=== PATIENT | female | born 1945 | race Caucasian/White ===

== ENCOUNTER 2018-12-12 05:30 | Day surgery (SDC) | payer OTHER ==
[2018-12-11 09:41] VITALS: BMI 32.4
[~2018-12-12] VITALS: Ht 154.9 cm; Wt 79.4 kg
[2018-12-12] VITALS (14 sets, daily range): BP systolic 90–118; BP diastolic 46–69; PULSE 58–78; RESP 12–20; Ht 154.9 cm; Wt 79.4 kg
[~2018-12-12 05:30] MED LIST: ALLO300T2 PO; ASPI81TA52 PO; ATOR40TA68 PO; DORZ10DR5 BOTH EYES; LATA2.5D2 BOTH EYES; LISI-471 PO; METF500T24 PO; SAXA5TAB2 PO
[2018-12-12] MEDS ORDERED: MOXIFLOXACIN 0.5% 3 ML OPH OPER SCH (06:00)
[2018-12-12] MEDS ORDERED: DICLOFENAC 0.1% 2.5 ML OPH OPER SCH (06:00)
[2018-12-12] MEDS ORDERED: ERYTHROMYCIN 1 GM OPH OINT LEFT EYE ONE (06:00)
[2018-12-12] MEDS ORDERED: PHENYLephrine 10% 5 ML OPH OPER SCH (06:00)
[2018-12-12] MEDS ORDERED: TROPICAMIDE 1% 15 ML OPH OPER SCH (06:00)
[2018-12-12] MEDS ORDERED: LIDOCAINE 1%/EPI (1:100,000) (MDV) 20 ML ONE (06:32)
[2018-12-12] MEDS ORDERED: TOBRAMYCIN 0.3% 3.5 GM OPH OINT ONE (06:32)
[2018-12-12] MEDS ORDERED: CARBACHOL 0.01% 1.5 ML OPH INJ ONE (06:32)
[2018-12-12] MEDS ORDERED: TETRACAINE 0.5% 4 ML OPH ONE (06:33)
[2018-12-12] MEDS ORDERED: EPINEPHrine 1 MG INJ ONE (06:33)
[2018-12-12] MEDS ORDERED: NA HYALURONATE/CHONDROITIN 0.5 ML SYG ONE (06:33)
[2018-12-12] MEDS ORDERED: CALC1TAB79 PO (06:59)
[2018-12-12] MEDS ORDERED: LIDOCAINE 4% (MPF) 5 ML INJ OPER ONE (07:00)
[2018-12-12] MEDS ORDERED: SODIUM HYALURONATE 14 MG/ML SYG IO ONE ×2 (07:00→08:10)
[2018-12-12] MEDS ORDERED: LIDOCAINE 1%/EPI (1:100,000) (MDV) 20 ML INJ ONE (07:00)
--- NOTE | 2018-12-12 07:10 | PREAC ---
Date/Time of Note Date/Time of Note DATE: 12/12/18 TIME: 07:08 Anesthesia Eval and Record Evaluation Time Pre-Procedure Interview DATE: 12/12/18 TIME: 07:08 Age 73 Sex female NPO: 8 hrs Preoperative diagnosis L eye cataract Planned procedure L eye cataract extraction w/ IOL Past Medical History Past Medical History: Includes (gout, L eye glaucoma) Cardio: HTN, Dyslipidemia Endo: Diabetes Surgery & Anesthesia Issues No known issue Meds Anticoagulation: No Beta Carisa within 24 hr: No Reason Beta Carisa not given: Pt. not on B-Carisa Reported Medications Calcium Carbonate/Vitamin D3 (Oysco 500+D Tablet) 1 Each Tablet, 1 EACH PO DAILY, TAB 12/12/18 Atorvastatin* (Atorvastatin*) 40 Mg Tablet, 40 MG PO QHS, #30 TAB 10/17/18 Saxagliptin Hcl* (Onglyza*) 5 Mg Tablet, 5 MG PO DAILY, TAB 10/17/18 Lisinopril* (Lisinopril*) 20 Mg Tablet, 20 MG PO DAILY, #30 TAB 10/17/18 Allopurinol* (Allopurinol*) 300 Mg Tablet, 300 MG PO DAILY, TAB 10/17/18 Metformin Hcl* (Metformin Hcl*) 500 Mg Tablet, 500 MG PO WITH BREAKFAST DINNE, #60 TAB 10/17/18 Discontinued Reported Medications Dorzolamide Hcl* (Dorzolamide Hcl*) 10 Ml Drops, 1 DROP BOTH EYES BID, #1 EA 10/17/18 Latanoprost (Latanoprost) 2.5 Ml Drops, 1 DROP BOTH EYES QHS, #1 BOTTLE 10/17/18 Aspirin (Low Dose Aspirin) 81 Mg Tablet.dr, 81 MG PO DAILY, #30 TAB 10/17/18 Current Medications Diclofenac Sodium (Voltaren 0.1%) 1 drop Q5 MIN X 3 OPER Last administered on 12/12/18at 06:21; Admin Dose 1 DROP; Start 12/12/18 at 06:00 Moxifloxacin HCl (Vigamox) 1 drop Q5 MIN X 3 OPER Last administered on 12/12/18at 06:21; Admin Dose 1 DROP; Start 12/12/18 at 06:00 Phenylephrine HCl (Ak-Dilate 10%) 1 drop Q5 MIN X 3 OPER Last administered on 12/12/18at 06:21; Admin Dose 1 DROP; Start 12/12/18 at 06:00 Tropicamide (Mydriacyl 1%) 1 drop Q5 MIN X3 OPER Last administered on 12/12/18at 06:21; Admin Dose 1 DROP; Start 12/12/18 at 06:00 Acetazolamide (Diamox) 250 mg POST-OP ONCE PO ; Start 12/12/18 at 09:00; Stop 12/12/18 at 09:01 Meds reviewed: Yes Allergies Coded Allergies: Penicillins (Verified Allergy, Unknown, 12/12/18) Sulfa (Sulfonamide Antibiotics) (Verified Adverse Reaction, Unknown, 12/12/18) gabapentin (Verified Adverse Reaction, Unknown, 12/12/18) liraglutide (Verified Adverse Reaction, Unknown, 12/12/18) pregabalin (Verified Adverse Reaction, Unknown, 12/12/18) Allergies Reviewed: Yes Labs/Studies Labs Reviewed: Reviewed by anesthesiologist test: N/A Studies: ECG (nml), CXR (nad) Pre-procedure Exam Last vitals Vital Signs Date Temp Pulse Resp B/P (MAP) Pulse Ox O2 O2 Flow FiO2 Time Delivery Rate 12/12/18 98.0 71 18 117/69 100 Room Air 06:46 (85) Airway: Adequate mouth opening, Adequate thyromental dist Mallampati: Mallampati II Teeth: Abnormal (broken teeth, missing teeth) Lung: Normal Heart: Normal ASA Physical Status ASA physical status: 2 Emergency: None Planned Anesthetic General/MAC: MAC Pre-operative Attestations Prior to commencing anesthesia and surgery, the patient was re-evaluated, there was verification of: *The patient's identity *The results of appropriate recent lab work and preoperative vital signs *The above evaluation not changing prior to induction *Anesthetic plan, risk benefits, alternative and complications discussed with patient/family; questions answered; patient/family understands, accepts and w ishes to proceed. DELBERT LAKE Dec 12, 2018 07:10
[2018-12-12] MEDS ORDERED: TIMOLOL MALEATE/PF 0.5% OCCUDOSE (0.3 ML) ONE (07:28)
[2018-12-12] MEDS ORDERED: ACETAMINOPHEN 325 MG TAB PO PRN (07:30)
[2018-12-12] MEDS ORDERED: FENTAnyl 50 MCG/ML VIAL IV PRN (07:30)
[2018-12-12] MEDS ORDERED: ALBUTEROL 0.083% (NEB) 2.5 MG/3 ML AMP HHN PRN (07:30)
[2018-12-12] MEDS ORDERED: OXYCODONE/ACETAMINOPHEN (5/325) TAB PO PRN (07:30)
[2018-12-12] MEDS ORDERED: LABETALOL HCL 20MG INJ IV PRN (07:30)
[2018-12-12] MEDS ORDERED: ONDANSETRON 4 MG INJ IV PRN (07:30)
[2018-12-12] MEDS ORDERED: hydrALAzine 20 MG INJ IV PRN (07:30)
[2018-12-12] MEDS ORDERED: DIPHENHYDRAMINE 50 MG INJ IV PRN (07:30)
[2018-12-12] MEDS ORDERED: ACETAMINOPHEN 500 MG TAB PO PRN (07:30)
[2018-12-12] MEDS ORDERED: MIDAZOLAM 1 MG/ML 2 ML INJ ONE (07:35)
--- NOTE | 2018-12-12 07:39 | HPN ---
Date/Time of Note Date/Time of Note DATE: 12/12/18 TIME: 07:39 Interval H&P Admission Note Pt. seen H&P reviewed: No system changes EVELYN WILDER Dec 12, 2018 07:39
[2018-12-12] MEDS ORDERED: TIMOLOL 0.5% 5 ML OPH LEFT EYE ONE (08:10)
--- NOTE | 2018-12-12 08:24 | PAC ---
Date/Time of Note Date/Time of Note DATE: 12/12/18 TIME: 08:23 Post-Anesthesia Notes Post-Anesthesia Note Last documented vital signs Vital Signs Date Temp Pulse Resp B/P Pulse Ox O2 O2 Flow FiO2 Time (MAP) Delivery Rate 12/12/18 98.0 97.9 71 71 18 16 117/69 100 100 Room 06:46 082 (85) 93/ Air RA 0 53 Activity: WNL Respiratory function: WNL Cardiovascular function: WNL Mental status: Baseline Pain reasonably controlled: Yes Hydration appropriate: Yes Nausea/Vomiting absent: Yes DELBERT [place]KE Dec 12, 2018 08:24
--- NOTE | 2018-12-12 08:34 | OPR ---
Date/Time of Note Date/Time of Note DATE: 12/12/18 TIME: 08:26 Operative Report Free Text/Dictation Procedure Date: 12/12/2018 Pre-operative diagnosis: Visually significant cataract, LEFT eye Postoperative diagnosis: Visually significant cataract, left eye Procedure: Phacoemulsification with Intra-ocular lens placement, left eye Surgeon: Evelyn Wilder MD Ratoprinter: none Anesthesia Type: MAC, local anesthesia Anesthesiologist: YANICK Tourniquet Time: NA Estimated blood loss: None Transfusions: none Specimen: None Grafts/Implants: IOL: [id number], power +23.00, serial [id number] Tubes/Drains: None Complications: None Pt Condition Post Procedure: stable Disposition: home Findings: opacified lens Indications for procedure: The patient is 73 year-old female with Visually significant cataract, who presen jayla with blurred vision and difficulty reading and driving. Past medical history is significant for HTN, HLD and DM and glaucoma Past surgical history is significant for cataract surgery right eye, hysterectomy. The patient is using onglyza, allopurinol, atrovastatin, gabapentin, lisinopril, metformin, nitrofurantoin. She has allergy to PCN. There is no history of glaucoma or any other hereditary ophthalmic disease in the family. Review of sys-tem is negative except for the blurred vision in the affected eye. VA in the operated eye 20/100, IOP 14 mmHg. Pupils are reactive with no RAPD. Slit lamp exam: cornea is clear, deep anterior chamber, 2+ cortical cataract, 2+ nuclear sclerosis cataract, there is no psudoexfoliation present at the pupillary margin or anterior lens capsule. On funds exam cup/disc ratio is 0.9, macula shows normal foveal reflex, retina is attached. Risk, benefit and alternative to cataract surgery was explained to the patient, who agreed to proceed with the procedure. The informed consent was signed by the patient. Description of procedure: The patient was seen by me along with anesthesia team in the pre op area and the surgical site was marked and confirmed. Anesthetic drops along with dilating drops was instilled in surgical eye in the pre op. The patient was then brought back to the operating room placed in supine position. The eye was prepped with Betadine 5% and draped in sterile manner for the ophthalmic surgery. An eyelid speculum was was placed to keep the eyelid open. Paracentesis wound was made superiorly and inferiorly though clear cornea near the limbus using 1.2mm side-port blade. Pre-servative free Lidocaine 1% was injected into the anterior chamber through the paracentesis wound. The anterior chamber was inflated with viscoelastic (viscoat). A keratom blade was used to make a bi- planar, shelved, clear corneal incision, starting at temporal limbus and then tunnel-ing through clear cornea to enter the anterior chamber. A circular curvilinear continue capsulorrhexis was initiated by cystotom and continued with utrata forceps. The capsular flap then was removed. Hydrodissection and hydrodelineation was per-formed using BSS until the lens was freely rotatable. The lens nucleus was then removed using the phacoemulsification handpiece. The residual cortex was removed with the bimanual irrigation/aspiration handpieces. The capsular bag and anterior chamber were inflated with viscoelas-tic, and the IOL was inserted into the capsular bag. Using irrigation/Aspiration handpiece on the aspiration mode, Healon was removed from the anterior and posterior chamber. Main wound and paracentesis wound was hydrated by BSS. The speculum was removed. Timolol drops and Sterile antibiotic/steroid ointment was applied to the eye. A cotton patch and clear shield were placed over the operative eye. The patient was transferred to the recovery room in stable condition. Evelyn Wilder MD [id number] EVELYN WILDER Dec 12, 2018 08:34
[2018-12-12] MEDS ORDERED: ACETAZOLAMIDE 250 MG TAB PO ONE (09:00)
== END 2018-12-12 09:46 | disposition home or self-care (01) ==
LOC: SDS 05:30
PROVIDERS: ATTEND Ophthalmology
DX: H26.8 Other specified cataract (principal); I10 Essential (primary) hypertension; E78.5 Hyperlipidemia, unspecified; E11.9 Type 2 diabetes mellitus without complications
CPT/HCPCS: 66984; 82962; J0171; J2250; V2632